=== PATIENT | female | born 1980 | race Caucasian/White ===

== ENCOUNTER 2016-07-29 22:11 | Emergency (ER) | payer OTHER ==
--- NOTE | 2016-07-29 22:33 | ED ---
General Adult HPI - General Chief complaint: Extremity Problem,Nontraumatic Stated complaint: Leg throbbing/with bruise Source: patient, RN notes reviewed Mode of arrival: ambulatory Limitations: no limitations - History of Present Illness Initial comments: If complaint and history of present illness a 35-year-old female with a complaint of initially itchy now painful localized swelling is ecchymotic to the posterior right calf area. Patient cannot remember being bitten by an insect or injuring this area. - Related Data Allergies Allergy/AdvReac Type Severity Reaction Status Date / Time No Known Allergies Allergy Verified 07/29/16 22:19 Review of Systems ROS Statement: Those systems with pertinent positive or pertinent negative responses have been documented in the HPI. Review of systems no other complaints this time no headache chest pain shows breath GI/ problems. All systems were normal. Past medical problems significant for previous septic emboli. Surgeries implanted hormone. Family history mother had breast cancer. Patient denies ALLERGIES nonsmoker nondrinker. ROS Other: All systems not noted in ROS Statement are negative. Past Medical History Past Medical History: No Reported History History of Any Multi-Drug Resistant Organisms: None Reported Past Surgical History: No Surgical Hx Reported Past Psychological History: No Psychological Hx Reported Smoking Status: Never smoker Past Alcohol Use History: None Reported Past Drug Use History: None Reported General Exam - General Exam Comments Initial Comments: General: The patient is awake and alert, had an itchy area behind her right calf noticed a bruise and tender area. Can't remember being bitten or injured in that area. Wants to get checked out for possible DVT. No other complaints. Temp 99.5 pulse 74 respiratory rate 16 pulse ox 90% room air blood pressure 124/66 E Cardiovascular: No complaint of palpitations or chest pain Respiratory: Denies shortness of breath respiratory rate 16 pulse ox 90% room air G Musculoskeletal: Patient does have varicosities of her there is one larger very tender area of ecchymosis that she said initially felt it she is a she was bitten by something palpation of the area causes discomfort. Posterior right side of the calf Neurological: No complaint of any numbness or tingling. Limitations: no limitations Course Vital Signs 07/29/16 07/29/16 22:15 22:55 Temperature 99.5 F Pulse Rate 74 Respiratory 16 18 Rate Blood Pressure 124/66 O2 Sat by Pulse 98 Oximetry Medical Decision Making - Medical Decision Making ultrasound of the right leg was done and reviewed by radiologist his final impression is a normal right lower extremity duplex venous ultrasound,no thrombus in the visualized greater saphenous vein. As read by Dr. Damien Patel advised to continue playing ice pack. Advised to use ibuprofen for discomfort. Follow-up. Her family physician as needed. Disposition Clinical Impression: Traumatic ecchymosis of right lower leg Disposition: HOME SELF-CARE Condition: Fair Instructions: Ecchymosis (ED), Superficial Thrombophlebitis (ED) Additional Instructions: Ice on again off again tonight. Ibuprofen for discomfort. Follow-up with family physician. Referrals: None,Stated [Primary Care Provider] - 1-2 days Time of Disposition: 00:22
--- NOTE | 2016-07-30 00:05 | US ---
EXAM: US Duplex Right Lower Extremity Veins CLINICAL HISTORY: Reason: Painful swelling posterior right leg TECHNIQUE: Real-time ultrasound scan of the veins of the right lower extremity with color Doppler flow, spectral waveform analysis and compression. COMPARISON: No relevant prior studies available. FINDINGS: Deep veins: Unremarkable. No DVT in the common femoral, femoral, proximal deep femoral or popliteal veins. The veins are compressible with normal color flow and augmentation. Superficial veins: Unremarkable. No thrombus in the visualized greater saphenous vein. Soft tissues: No acute findings. No popliteal cyst. IMPRESSION: Normal right lower extremity duplex venous ultrasound.
[2016-07-30 00:34] VITALS: BP 132/87; PULSE 78; RESP 17; TEMP 98.7
== END 2016-07-30 00:33 | disposition home or self-care (01) ==
LOC: EC 22:11
DX: S80.11XA Contusion of right lower leg, initial encounter (principal); X58.XXXA Exposure to other specified factors, initial encounter
CPT/HCPCS: 99283

== ENCOUNTER 2020-03-06 19:50 | Emergency (ER) | payer OTHER ==
[2020-03-06] MEDS ORDERED: SODIUM CHLORIDE 0.9% 1,000 ML IV STA ×2 (20:23→21:08)
--- NOTE | 2020-03-06 20:26 | ED ---
General Adult HPI - General Chief complaint: Recheck/Abnormal Lab/Rx Stated complaint: Abn Lab Time Seen by Provider: 03/06/20 20:00 Source: patient Mode of arrival: ambulatory Limitations: no limitations - History of Present Illness Initial comments: Patient is a 39-year-old female presenting to the emergency room for a chief complaining of bilateral flank pain. Patient states she has had low back pain for the past 5 days. She noted she had frequent urination associated with this as well. Now her pain is in her flank. She has also had nausea associated with this as well. Patient went to urgent care and had a urine test performed which showed moderate to large bilirubin in the urine. She was then sent to the emergency room for this. Patient denies any significant abdominal pain. This is some minimal left upper quadrant abdominal pain. Denies any right upper quadrant or epigastric abdominal pain. Patient does not have a history of c holecystectomy. No fevers.Patient has no other complaints at this time including shortness of breath, chest pain, abdominal pain, nausea or vomiting, headache, or visual changes. - Related Data Previous Rx's Medication Instructions Recorded Cephalexin [Keflex] 500 mg PO Q6HR 14 Days #56 cap 03/06/20 Ondansetron [Zofran ODT] 4 mg PO Q8HR PRN #15 tab 03/06/20 Allergies Allergy/AdvReac Type Severity Reaction Status Date / Time No Known Allergies Allergy Verified 03/06/20 21:12 Review of Systems ROS Statement: Those systems with pertinent positive or pertinent negative responses have been documented in the HPI. ROS Other: All systems not noted in ROS Statement are negative. Past Medical History Past Medical History: No Reported History History of Any Multi-Drug Resistant Organisms: None Reported Past Surgical History: Tubal Ligation Past Psychological History: No Psychological Hx Reported Smoking Status: Never smoker Past Alcohol Use History: None Reported Past Drug Use History: None Reported General Exam Limitations: no limitations General appearance: alert, in no apparent distress, other (no jaundice) Head exam: Present: atraumatic Eye exam: Present: normal appearance, PERRL, EOMI. Absent: scleral icterus ENT exam: Present: normal exam, mucous membranes moist Neck exam: Present: normal inspection, full ROM. Absent: tenderness Respiratory exam: Present: normal lung sounds bilaterally. Absent: respiratory distress Cardiovascular Exam: Present: regular rate, normal rhythm, normal heart sounds GI/Abdominal exam: Present: soft, tenderness (Minimal left upper quadrant tenderness. No right upper quadrant or right lower quadrant tenderness. no left lower quadrant abdominal tenderness). Absent: distended Back exam: Present: CVA tenderness (R), CVA tenderness (L) Neurological exam: Present: alert Skin exam: Present: warm, dry, intact, normal color. Absent: rash Course Vital Signs 03/06/20 03/06/20 19:52 21:00 Temperature 98.6 F Pulse Rate 92 88 Respiratory 20 18 Rate Blood Pressure 115/73 128/78 O2 Sat by Pulse 99 97 Oximetry Medical Decision Making - Medical Decision Making Vitals are stable. HPI physical exam is documented. CBC unremarkable. CMP shows minimal hypokalemia, replaced orally. There is some increase in creatinine of 1.39. Patient states she has not been drinking as much water as normal. This is likely related. Liver enzymes slightly elevated however no baseline to compare to. Bilirubin normal. Urinalysis however did show evidence of infection with large leukocyte esterase, 172 white cells, and bacteria. There is associated red blood cells as well. Patient is not on her period. Discussed case with Dr. martinez. She will be treated for urinary tract infection and possible pyelonephritis. However discussed strict return parameters with patient. Especially if she is getting worse, developing fevers, were not able to tolerate liquids. Otherwise she'll follow-up with her doctor for repeat labs. - Lab Data Result diagrams: 03/06/20 20:38 03/06/20 20:38 Lab Results 03/06/20 03/06/20 03/06/20 Range/Units 20:38 20:38 20:38 WBC 13.1 H (3.8-10.6) k/uL RBC 4.43 (3.80-5.40) m/uL Hgb 13.4 (11.4-16.0) gm/dL Hct 38.1 (34.0-46.0) % MCV 85.9 (80.0-100.0) fL MCH 30.2 (25.0-35.0) pg MCHC 35.1 (31.0-37.0) g/dL RDW 12.9 (11.5-15.5) % Plt Count 265 (150-450) k/uL MPV 9.1 Neutrophils % 81 % Lymphocytes % 7 % Monocytes % 6 % Eosinophils % 2 % Basophils % 1 % Neutrophils # 10.5 H (1.3-7.7) k/uL Lymphocytes # 0.9 L (1.0-4.8) k/uL Monocytes # 0.8 (0-1.0) k/uL Eosinophils # 0.3 (0-0.7) k/uL Basophils # 0.2 (0-0.2) k/uL Sodium (137-145) mmol/L Potassium (3.5-5.1) mmol/L Chloride (98-107) mmol/L Carbon Dioxide (22-30) mmol/L Anion Gap mmol/L BUN (7-17) mg/dL Creatinine (0.52-1.04) mg/dL Est GFR (CKD-EPI)AfAm (>60 ml/min/1.73 sqM) Est GFR (CKD-EPI)NonAf (>60 ml/min/1.73 sqM) Glucose (74-99) mg/dL Calcium (8.4-10.2) mg/dL Magnesium (1.6-2.3) mg/dL Total Bilirubin (0.2-1.3) mg/dL AST (14-36) U/L ALT (4-34) U/L Alkaline Phosphatase (38-126) U/L Total Protein (6.3-8.2) g/dL Albumin (3.5-5.0) g/dL Amylase (30-110) U/L Lipase (23-300) U/L Urine Color Dark Brown Urine Appearance Cloudy H (Clear) Urine pH 6.0 (5.0-8.0) Ur Specific Yoder 1.030 (1.001-1.035) Urine Protein 2+ H (Negative) Urine Glucose (UA) Negative (Negative) Urine Ketones Trace H (Negative) Urine Blood Large H (Negative) Urine Nitrite Negative (Negative) Urine Bilirubin 1+ H (Negative) Urine Urobilinogen >12.0 (<2.0) mg/dL Ur Leukocyte Esterase Large H (Negative) Urine RBC >182 H (0-5) /hpf Urine WBC 172 H (0-5) /hpf Urine WBC Clumps Occasional H (None) /hpf Ur Squamous Epith Cells 11 H (0-4) /hpf Urine Bacteria Rare H (None) /hpf Urine Mucus Few H (None) /hpf Urine HCG, Qual Not Detected (Not Detectd) 03/06/20 03/06/20 Range/Units 20:38 20:38 WBC (3.8-10.6) k/uL RBC (3.80-5.40) m/uL Hgb (11.4-16.0) gm/dL Hct (34.0-46.0) % MCV (80.0-100.0) fL MCH (25.0-35.0) pg MCHC (31.0-37.0) g/dL RDW (11.5-15.5) % Plt Count (150-450) k/uL MPV Neutrophils % % Lymphocytes % % Monocytes % % Eosinophils % % Basophils % % Neutrophils # (1.3-7.7) k/uL Lymphocytes # (1.0-4.8) k/uL Monocytes # (0-1.0) k/uL Eosinophils # (0-0.7) k/uL Basophils # (0-0.2) k/uL Sodium 137 (137-145) mmol/L Potassium 3.1 L (3.5-5.1) mmol/L Chloride 101 (98-107) mmol/L Carbon Dioxide 25 (22-30) mmol/L Anion Gap 11 mmol/L BUN 18 H (7-17) mg/dL Creatinine 1.39 H (0.52-1.04) mg/dL Est GFR (CKD-EPI)AfAm 56 (>60 ml/min/1.73 sqM) Est GFR (CKD-EPI)NonAf 48 (>60 ml/min/1.73 sqM) Glucose 104 H (74-99) mg/dL Calcium 8.8 (8.4-10.2) mg/dL Magnesium 2.2 (1.6-2.3) mg/dL Total Bilirubin 1.2 (0.2-1.3) mg/dL AST 68 H (14-36) U/L ALT 131 H (4-34) U/L Alkaline Phosphatase 164 H (38-126) U/L Total Protein 7.1 (6.3-8.2) g/dL Albumin 3.7 (3.5-5.0) g/dL Amylase 54 (30-110) U/L Lipase 66 (23-300) U/L Urine Color Urine Appearance (Clear) Urine pH (5.0-8.0) Ur Specific Yoder (1.001-1.035) Urine Protein (Negative) Urine Glucose (UA) (Negative) Urine Ketones (Negative) Urine Blood (Negative) Urine Nitrite (Negative) Urine Bilirubin (Negative) Urine Urobilinogen (<2.0) mg/dL Ur Leukocyte Esterase (Negative) Urine RBC (0-5) /hpf Urine WBC (0-5) /hpf Urine WBC Clumps (None) /hpf Ur Squamous Epith Cells (0-4) /hpf Urine Bacteria (None) /hpf Urine Mucus (None) /hpf Urine HCG, Qual (Not Detectd) Disposition Clinical Impression: UTI (urinary tract infection), Elevated liver enzymes Disposition: HOME SELF-CARE Condition: Good Instructions (If sedation given, give patient instructions): Kidney Infection (ED) Additional Instructions: Please take antibiotic as directed every 6 hours. Take Zofran as needed for nausea up to every 8 hours. Follow up with primary care to repeat labs. If you have any worsening symptoms such as fever, worsening pain, or unable to keep down fluids, right upper quadrant pain, or any other concerns return to the emergency room. Prescriptions: Cephalexin [Keflex] 500 mg PO Q6HR 14 Days #56 cap Ondansetron [Zofran ODT] 4 mg PO Q8HR PRN #15 tab PRN Reason: Nausea Is patient prescribed a controlled substance at d/c from ED?: No Referrals: Julio Zaragoza MD [STAFF PHYSICIAN] - 1-2 days Moy Richardson DO [STAFF PHYSICIAN] - 1-2 days Time of Disposition: 22:32
[2020-03-06 20:46] LABS: Basophils # (A) 0.2 k/uL (0-0.2); Basophils % (A) 1 %; Eosinophils # (A) 0.3 k/uL (0-0.7); Eosinophils % (A) 2 %; HCT 38.1 % (34.0-46.0); HGB 13.4 gm/dL (11.4-16.0); Lymphocytes # (A) 0.9 k/uL (1.0-4.8); Lymphocytes % (A) 7 %; MCH 30.2 pg (25.0-35.0); MCHC 35.1 g/dL (31.0-37.0); MCV 85.9 fL (80.0-100.0); Mean Platelet Volume 9.1; Monocytes # (A) 0.8 k/uL (0-1.0); Monocytes % (A) 6 %; Neutrophils # (A) 10.5 k/uL (1.3-7.7); Neutrophils % (A) 81 %; Platelet Count 265 k/uL (150-450); RBC 4.43 m/uL (3.80-5.40); RDW 12.9 % (11.5-15.5); WBC 13.1 k/uL (3.8-10.6)
[2020-03-06 20:49] LABS: Appearance,Urine Cloudy (Clear); Bacteria,Urine Rare /hpf; Bilirubin,Urine 1+ (Negative); Blood,Urine Large (Negative); Color,Urine Dark Brown; Glucose,Urine (UA) Negative (Negative); Ketones,Urine Trace (Negative); Leukocyte Esterase,Urine Large (Negative); Mucus,Urine Few /hpf; Nitrite,Urine Negative (Negative); Protein,Urine 2+ (Negative); RBC,Urine >182 /hpf (0-5); Squamous Epithelial Cell,Urine 11 /hpf (0-4); Urobilinogen,Urine >12.0 mg/dL (<2.0); WBC,Urine 172 /hpf (0-5)
[2020-03-06 20:58] LABS: Albumin 3.7 g/dL (3.5-5.0); Calcium 8.8 mg/dL (8.4-10.2); Potassium 3.1 mmol/L (3.5-5.1); Total Bilirubin 1.2 mg/dL (0.2-1.3); Total Protein 7.1 g/dL (6.3-8.2)
[2020-03-06] MEDS ORDERED: POTASSIUM CHLORIDE ER 20 MEQ TAB.ER PO STA (21:07)
[2020-03-06 21:32] VITALS: RESP 18
--- NOTE | 2020-03-06 21:55 | CT ---
EXAMINATION TYPE: CT abdomen pelvis wo con DATE OF EXAM: 03/06/2020 COMPARISON: None available. HISTORY: left flank pain CT DLP: 652.7 mGycm Automated exposure control for dose reduction was used. TECHNIQUE: Helical acquisition of images was performed from the lung bases through the pelvis. FINDINGS: LUNG BASES: No acute abnormality is appreciated. Nonspecific 3 mm right middle lobe nodule. LIVER/GB: No significant abnormality is appreciated. PANCREAS: No significant abnormality is seen. SPLEEN: No significant abnormality is seen. ADRENALS: No significant abnormality is seen. KIDNEYS: Few 2-4 nonobstructing left renal calculi with the largest measuring 6 mm. No significant bi lateral hydronephrosis or nephrolithiasis. FREE AIR: No free air is visualized RETROPERITONEAL ADENOPATHY: None visualized REPRODUCTIVE ORGANS: No significant abnormality is seen URINARY BLADDER: No significant abnormality is seen. PELVIC ADENOPATHY: None visualized. OSSEOUS STRUCTURES: No significant abnormality is seen. BOWEL: No significant abnormality is seen. Small right inguinal hernia. Normal appendix. OTHER: Bilateral tubal ligation noted. Incidental 4 cm simple appearing right adnexal cyst. IMPRESSION: NO DEFINITE ACUTE ABNORMALITY. NONOBSTRUCTING LEFT RENAL CALCULI, MEASURING UP TO 6 MM. Incidental findings as above to include 4 cm right adnexal cyst.
[2020-03-06] MEDS ORDERED: cefTRIAXone IN SWFI 1,000 MG/10 ML SYRINGE IVP STA ×2 (22:30→22:31)
[2020-03-06] MEDS ORDERED: CEPHALEXIN 500MG STARTER PACK 4 CAP BTL PO STA (22:33)
[2020-03-06] MEDS ORDERED: ONDANSETRON 4 MG ODT STARTER PACK 2 TAB BTL PO STA (22:33)
[2020-03-06 22:54] VITALS: BP 116/73; PULSE 74; TEMP 98.3
== END 2020-03-06 22:54 | disposition home or self-care (01) ==
LOC: EC 19:50
DX: N39.0 Urinary tract infection, site not specified (principal); R94.5 Abnormal results of liver function studies; E87.6 Hypokalemia; Z98.51 Tubal ligation status
CPT/HCPCS: 36415; 80053; 82150; 83690; 83735; 85025; 81001; 81025; 87086; 74176; 99284; 96374; 96361 ×2; J0696; S0119

== ENCOUNTER → 2020-06-02 | Outpatient (CLI) | payer OTHER ==
[2020-06-03 03:07] LABS: Folate, Serum 3.3 ng/mL
--- NOTE | 2020-06-03 12:05 | US ---
EXAMINATION TYPE: US pelvic complete DATE OF EXAM: 06/02/2020 COMPARISON: NONE CLINICAL HISTORY: 39-year-old female M79.89,Z86.718,Z01.419 SWELLING, BLOOD CLOTS. Patient has MTHFR mutation and has blood clots with every cycle, , Essure tubal ligation TECHNIQUE: TA. Transabdominal sonographic images of the pelvis were acquired. Date of LMP: 05/12/2020 FINDINGS: EXAM MEASUREMENTS: Uterus: 11.0 x 7.6 x 5.5 cm Endometrial Stripe: 1.6 cm Right Ovary: 3.5 x 2.9 x 3.2 cm Left Ovary: 3.3 x 2.7 x 1.9 cm 1. Uterus: Anteverted and otherwise wnl 2. Endometrium: 1.6cm thickened to the upper limits of normal. 3. Right Ovary: wnl 4. Left Ovary: wnl 5. Bilateral Adnexa: wnl 6. Posterior cul-de-sac: wnl Bilateral Essures are seen at the uterine cornua. There is fundal indentation onto the endometrium, s uspected arcuate configuration to the uterus. IMPRESSION: 1. Bilateral Essures are seen at the uterine cornua. 2. Incidental fundal indentation onto the endometrium, suspected arcuate configuration to the uterus. 3. Endometrial stripe thickened to the upper limits of normal at 1.6 cm should correspond to the late secretory phase of the menstrual cycle.
== END | disposition home or self-care (01) ==
LOC: RADUSWWP 15:38
PROVIDERS: ATTEND Family Medicine
DX: R93.89 Abnormal findings on diagnostic imaging of other specified body structures (principal)
CPT/HCPCS: 36415; 76856; 81291; 82306; 82607; 82746; 83090

== ENCOUNTER → 2020-07-05 | Outpatient (CLI) | payer OTHER ==
--- NOTE | 2020-07-06 10:12 | MM ---
Reason for exam: screening (asymptomatic). Baseline mammogram. History: Family history of breast cancer in mother at age 50. Took hormonal contraceptives for 2 years beginning at age 15. Physical Findings: Nurse did not find any significant physical abnormalities on exam. MG Screening Mammo w CAD Bilateral CC and MLO view(s) were taken. The breast tissue is heterogeneously dense. This may lower the sensitivity of mammography. Right nodule retroareolar. These results were verbally communicated with the patient and result sheet given to the patient on 07/05/20. ASSESSMENT: Incomplete: need additional imaging evaluation, BI-RAD 0 RECOMMENDATION: Special view mammogram of the right breast.
--- NOTE | 2020-07-06 10:14 | MM ---
Reason for exam: additional evaluation requested from abnormal screening. History: Family history of breast cancer in mother at age 50. Took hormonal contraceptives for 2 years beginning at age 15. Physical Findings: Breast exam preformed at baseline screening. MG Work Up Mamm w CAD BILAT Bilateral spot compression MLO and LM view(s) were taken. Spot compression CC view(s) were taken of the right breast. The breast tissue is heterogeneously dense. This may lower the sensitivity of mammography. 5mm nodule right upper outer quadrant retroareolar 10 o'clock. These results were verbally communicated with the patient and result sheet given to the patient on 07/05/20. ASSESSMENT: Incomplete: need additional imaging evaluation, BI-RAD 0 RECOMMENDATION: Ultrasound of the right breast.
--- NOTE | 2020-07-06 10:16 | USB ---
Reason for exam: additional evaluation requested from abnormal screening. History: Family history of breast cancer in mother at age 50. Took hormonal contraceptives for 2 years beginning at age 15. US Breast Workup Limited RT Technologist: Torie Shen Right limited breast ultrasound including focal area of concern, retroareolar and axilla demonstrates no sonographic correlate for 5mm nodule on right breast mammogram. Dense breast tissue/fibrocystic area at 10 o'clock approximately 6cm from nipple. These results were verbally communicated with the patient and result sheet given to the patient on 07/05/20. ASSESSMENT: Probably benign, BI-RAD 3 RECOMMENDATION: Follow-up diagnostic mammogram of the right breast in 6 months.
== END | disposition home or self-care (01) ==
LOC: RADMAMWWP 13:42
PROVIDERS: ATTEND Family Medicine
DX: Z12.31 Encounter for screening mammogram for malignant neoplasm of breast (principal); R92.2 Inconclusive mammogram; N63.11 Unspecified lump in the right breast, upper outer quadrant; Z80.3 Family history of malignant neoplasm of breast
CPT/HCPCS: 77066; 77067

== ENCOUNTER → 2021-03-29 | Outpatient (CLI) | payer OTHER ==
--- NOTE | 2021-03-29 13:45 | MM ---
Reason for exam: follow-up at short interval from prior study. Last mammogram was performed 9 months ago. History: Family history of breast cancer in mother at age 50. Took hormonal contraceptives for 2 years beginning at age 15. Physical Findings: Nurse did not find any significant physical abnormalities on exam. MG 3D Diag Mammo W/Cad RT CC, MLO, and LM view(s) were taken of the right breast. Prior study comparison: July 05, 2020, bilateral MG work up mamm w CAD BILAT. July 05, 2020, bilateral MG screening mammo w CAD. The breast tissue is heterogeneously dense. This may lower the sensitivity of mammography. There is no discrete abnormality including area of concern. These results were verbally communicated with the patient and result sheet given to the patient on 03/29/21. ASSESSMENT: Negative, BI-RAD 1 RECOMMENDATION: Return to routine screening mammogram schedule for both breasts. Back on schedule.
== END | disposition home or self-care (01) ==
LOC: RADMAMWWP 12:53
PROVIDERS: ATTEND Family Medicine
DX: N63.11 Unspecified lump in the right breast, upper outer quadrant (principal); N63.41 Unspecified lump in right breast, subareolar
CPT/HCPCS: 77065; G0279; 77061

== ENCOUNTER → 2022-08-10 | Day surgery (SDC) | payer MEDICAID, OTHER ==
[2022-08-07 15:53] VITALS: BMI 30.2
[~2022-08-10] MED LIST: LACTATED RINGERS 1,000 ML IV SCH; PROPOFOL 10 MG/ML 20 ML VIAL IV ONE
[2022-08-10 06:53] VITALS: TEMP 97.7
--- NOTE | 2022-08-10 08:32 | P.PCN ---
Date of Procedure: 08/10/22 Procedure(s) Performed: Brief history: Patient is a pleasant 2-year-old white female scheduled for an elective upper endoscopy as well as colonoscopy as a part of evaluation of GERD, chronic diarrhea and positive serology for celiac disease Procedure performed: Esophagogastroduodenoscopy with biopsy Colonoscopy with biopsy Preoperative diagnosis: GERD Positive serology for celiac disease Chronic diarrhea Anesthesia: [facility] Procedure: After informed consent was obtained from the patient was brought into the endoscopy unit and IV sedation was administered by anesthesia under continuous monitoring. Initially upper endoscopy was done. The Olympus GF 160 video endoscope was inserted inserted into the mouth and esophagus intubated without any difficulty and was gradually advanced into the stomach and duodenum and carefully examined. The bulb and second part of the duodenum appeared normal. Multiple biopsies were done from the duodenum to rule out celiac disease. The scope was then withdrawn into the stomach adequately insufflated with air and upon careful examination the antrum had mild gastritis and biopsies were done from this area. Mucosa of the body, cardia and fundus appeared normal. The scope was then withdrawn into the esophagus. The GE junction was located at 40 cm to the incisors. It appeared regular with no erythema erosions or ulcerations. Rest of the esophagus appeared normal. Patient tolerated the procedure well. At this time the patient continued to remain sedation. Initial digital rectal examination was normal. Olympus CF 160 video colonoscope was then inserted into the rectum and gradually advanced to the cecum without any difficulty. Careful examination was performed as the scope was gradually being withdrawn. The prep was excellent. Terminal ileum was intubated and 20 cm visualized and appeared normal. The cecum, ascending colon, transverse colon, descending colon, sigmoid colon and rectum appeared normal. Random biopsies were done from ascending and descending colon to rule out metastatic/collagenous colitis Retroflexion was performed in the rectum and no lesions were noted. Patient tolerated the procedure well. Impression: 1. Upper endoscopy revealed mild antral gastritis and normal-appearing duodenum status post multiple biopsies to rule out 2. Anoscopy was within normal limits with no evidence of colitis or colorectal neoplasia Recommendations: Findings of this examination were discussed with the patient as well as her family. She was advised to follow with the biopsy result. She'll be seen in office in 2 weeks.
[2022-08-10 09:26] VITALS: BP 110/70; PULSE 81; RESP 16
== END ==
LOC: ORWHC2ENDO 06:14
PROVIDERS: ATTEND Internal Medicine Gastroenterology
DX: K29.50 Unspecified chronic gastritis without bleeding (principal); K52.9 Noninfective gastroenteritis and colitis, unspecified; D72.820 Lymphocytosis (symptomatic); K21.9 Gastro-esophageal reflux disease without esophagitis; K90.0 Celiac disease; Z79.899 Other long term (current) drug therapy
CPT/HCPCS: 81025; 88305; 45380; 43239; J2704

== ENCOUNTER → 2023-05-22 | Outpatient (CLI) | payer MEDICAID, OTHER ==
--- NOTE | 2023-05-22 17:50 | US ---
EXAMINATION TYPE: US venous doppler duplex LE RT DATE OF EXAM: 05/22/2023 2:53 PM COMPARISON: 07/29/2016 CLINICAL INDICATION: Female, 42 years old with history of Z86.718 HX BLOOD CLOTS M79.651 THIGH PAIN L 53.9 LEG ERYTHEMA; Right leg pain and bruising since saturday. Patient states she has had this ultrasou nd done before but that she has never had a blood clot. . SIDE PERFORMED: Right TECHNIQUE: The lower extremity deep venous system is examined utilizing real time linear array sonog aniyah with graded compression, doppler sonography and color-flow sonography. VESSELS IMAGED: Common Femoral Vein Deep Femoral Vein Greater Saphenous Vein * Femoral Vein Popliteal Vein Small Saphenous Vein * Proximal Calf Veins (* superficial vessels) Right Leg: Negative for DVT results left with La at office IMPRESSION: 1. Right lower extremity ultrasound negative for deep venous thrombosis.
== END | disposition home or self-care (01) ==
LOC: RADUSWWP 14:28
PROVIDERS: ATTEND Family Medicine
DX: M79.651 Pain in right thigh (principal); L53.9 Erythematous condition, unspecified; Z15.89 Genetic susceptibility to other disease; Z86.718 Personal history of other venous thrombosis and embolism

== ENCOUNTER → 2023-10-31 | Outpatient (CLI) | payer MEDICAID, OTHER ==
--- NOTE | 2023-11-03 16:58 | MM ---
Reason for Exam: Screening (asymptomatic). Last mammogram was performed 3 year(s) and 4 month(s) ago. Patient History: Menarche at age 12. First Full-Term at age 25. Hormonal Contraceptives for 2 years from age 15 until age 17. Mother had breast cancer, age 50. Last menstrual period: 10/11/2023 Risk Values: Lety 5 year model risk: 1.4%. NCI Lifetime model risk: 19.6%. Prior Study Comparison: 07/05/2020 Bilateral Screening Mammogram, [facility]. 07/05/2020 Bilateral Diagnostic Mammogram, [facility]. 03/29/2021 Right Diagnostic Mammogram, [facility]. Tissue Density: The breasts are heterogeneously dense, which may obscure small masses. Findings: Analyzed By CAD. Focal asymmetry 12:00 right breast middle to posterior depth appears more pronounced and incompletely disperses on 3-D images. Further evaluation recommended. On the left, there is nodularity approximately 3 to 4:00 position at a middle depth for which further evaluation is recommended. Overall Assessment: Incomplete: need additional imaging evaluation, BI-RAD 0 Management: Special View Mammogram of both breasts. Diagnostic Breast Ultrasound of both breasts. [facility] will attempt to contact patient to return for supplemental views and ultrasound if indicated. [facility], , 11/03/2023 4:55 PM. Electronically signed and approved by: Donnie Rome M.D. Radiologist
== END | disposition home or self-care (01) ==
LOC: RADMAMWWP 09:35
PROVIDERS: ATTEND Obstetrics & Gynecology
DX: Z12.31 Encounter for screening mammogram for malignant neoplasm of breast
CPT/HCPCS: 77063; 77067

== ENCOUNTER → 2023-11-08 | Outpatient (CLI) | payer MEDICAID, OTHER ==
--- NOTE | 2023-11-08 14:21 | MM ---
Reason for Exam: Additional evaluation requested from abnormal screening. Last screening mammogram was performed less than 1 month ago. Patient History: Menarche at age 12. First Full-Term at age 25. Hormonal Contraceptives for 2 years from age 15 until age 17. Mother had breast cancer, age 50. Last menstrual period: 11/08/2023 Risk Values: Lety 5 year model risk: 1.4%. NCI Lifetime model risk: 19.6%. Prior Study Comparison: 03/29/2021 Right Diagnostic Mammogram, [facility]. 10/31/2023 Bilateral MG 3D screening mammo w/cad, [facility]. Tissue Density: The breasts are heterogeneously dense, which may obscure small masses. Findings: Analyzed By CAD. The pattern is symmetrical. Under compression on the right breast density appears to largely disperse. There is some mild residual on the mediolateral oblique view. Ultrasound with attention to the right 12:00 position is recommended. Impression small 0.4 cm lower outer quadrant breast nodule remains present on the mediolateral oblique compression view. This is 7 cm from the nipple. Follow-up ultrasound is recommended. Overall Assessment: Incomplete: need additional imaging evaluation, BI-RAD 0 Management: Diagnostic Breast Ultrasound of both breasts. A negative mammogram report should not preclude additional follow up of suspicious palpable abnormalities. Patient should continue monthly self breast exam. A clinical breast exam by your physician is recommended on an annual basis and results should be correlated with mammographic findings. Note on Lety scores and lifetime risk: 1. A Lety score greater than 3% is considered moderate risk. If this is the case, consider specialist referral to assess eligibility for a risk reducing agent. 2. If overall lifetime risk for the development of breast cancer is 20% or higher, the patient may qualify for future screening with alternating mammogram and breast MRI. [facility], , 11/08/2023 2:18 PM. Electronically signed and approved by: Raheem Gastelum D.O. Radiologis
--- NOTE | 2023-11-08 14:57 | USB ---
Reason for Exam: Additional evaluation requested from abnormal screening. Patient History: Menarche at age 12. First Full-Term at age 25. Hormonal Contraceptives for 2 years from age 15 until age 17. Mother had breast cancer, age 50. Risk Values: Lety 5 year model risk: 1.4%. NCI Lifetime model risk: 19.6%. Technique: Method: Targeted. Prior Study Comparison: 07/05/2020 Bilateral Diagnostic Mammogram, [facility]. 03/29/2021 Right Diagnostic Mammogram, [facility]. 10/31/2023 Bilateral MG 3D screening mammo w/cad, [facility]. Findings: The upper section of the breast of the right breast, the lower outer quadrant of the left breast, the axilla of both breasts and the retroareolar of both breasts were scanned. 12:00 position right breast there is a very small 0 point for a 0.4 x 0.3 cm cyst with good through transmission and posterior wall enhancement. No suspicious spiculated or lobular masses within the right breast. In the 3:00 position 7 cm from the nipple there is a 0.3 x 0.4 x 0.4 cm hypoechoic area with good through transmission. Cyst too small to classify may be present. Follow-up in 6 months is recommended. Subareolar left breast has a 0.5 x 0.3. This May be a cyst. Follow-up exam in 6 months is recommended. Management: Diagnostic Breast Ultrasound of both breasts in 6 months. A clinical breast exam by your physician is recommended on an annual basis and results should be correlated with mammographic findings. This exam should not preclude additional follow-up of suspicious palpable abnormalities. Results were given to the patient verbally at the time of exam. [facility], , 11/08/2023 2:43 PM. Electronically signed and approved by: Raheem Gastelum D.O. Radiologis
== END | disposition home or self-care (01) ==
LOC: RADMAMWWP 13:32
PROVIDERS: ATTEND Obstetrics & Gynecology
CPT/HCPCS: 77062; 77066

== ENCOUNTER 2024-05-28 00:12 | Emergency (ER) | payer MEDICAID, OTHER ==
[2024-05-28 01:32] LABS: Appearance,Urine Turbid (Clear); Bacteria,Urine Rare /hpf; Bilirubin,Urine Negative (Negative); Blood,Urine Large (Negative); Calcium Oxalate Crystals,Urine Many /hpf; Color,Urine Light Red; Glucose,Urine (UA) Negative (Negative); Ketones,Urine Negative (Negative); Leukocyte Esterase,Urine Small (Negative); Mucus,Urine Moderate /hpf; Nitrite,Urine Negative (Negative); PH, Urine 5.5 (5.0-8.0); Protein,Urine 1+ (Negative); RBC,Urine >182 /hpf (0-5); Specific Gravity,Urine 1.026 (1.001-1.035); Squamous Epithelial Cell,Urine 3 /hpf (0-4); Urobilinogen,Urine <2.0 mg/dL (<2.0); WBC,Urine 8 /hpf (0-5)
[2024-05-28] MEDS: SODIUM CHLORIDE 0.9% 1,000 ML IV ONE (01:54)
--- NOTE | 2024-05-28 02:17 | ED ---
General Adult HPI - General Chief complaint: Abdominal Pain Stated complaint: lower back pain & abd pain Time Seen by Provider: 05/28/24 00:45 Source: patient, RN notes reviewed Mode of arrival: ambulatory - History of Present Illness Initial comments: 43-year-old female presents to the emergency department for evaluation of left- sided abdominal pain and left-sided flank pain. Patient states that this started around 10:30 AM today. She noted that the pain came on suddenly. Reports that as sharp pain. Denies any known dysuria, hematuria. Denies any fever, chills. Denies any nausea. - Related Data Home Medications Medication Instructions Recorded Confirmed Cholecalciferol [Vitamin D3 (25 50 mcg PO DAILY 08/08/22 08/10/22 Mcg = 1000 Iu)] Cyanocobalamin [Vitamin B-12] 500 mcg PO DAILY 08/08/22 08/10/22 Dicyclomine [Bentyl] 20 mg PO DAILY 08/08/22 08/10/22 Folic Acid 0.8 mg PO DAILY 08/08/22 08/10/22 Omeprazole 20 mg PO DAILY 08/08/22 08/10/22 PARoxetine [Paxil] 10 mg PO DAILY 08/08/22 08/10/22 Previous Rx's Medication Instructions Recorded HYDROcodone/APAP 5-325MG [[place] 5] 1 each PO Q6HR PRN #12 tab 05/28/24 Ondansetron Odt [Zofran Odt] 4 mg PO Q8HR PRN #10 tab 05/28/24 Allergies Allergy/AdvReac Type Severity Reaction Status Date / Time gluten Allergy CELIAC Verified 08/10/22 06:54 DISEASE Review of Systems ROS Statement: Those systems with pertinent positive or pertinent negative responses have been documented in the HPI. ROS Other: All systems not noted in ROS Statement are negative. Past Medical History Past Medical History: Blood Disorder, GERD/Reflux Additional Past Medical History / Comment(s): CELIAC, IBS. MTHFR History of Any Multi-Drug Resistant Organisms: None Reported Past Surgical History: Tubal Ligation, Uterine Ablation Additional Past Surgical History / Comment(s): ESSURE IMPLANT Past Anesthesia/Blood Transfusion Reactions: No Reported Reaction Past Psychological History: Anxiety Smoking Status: Never smoker - Past Family History Mother Family Medical History: Cancer General Exam Limitations: no limitations General appearance: alert, in no apparent distress Head exam: Present: atraumatic, normocephalic, normal inspection Eye exam: Present: normal appearance, PERRL, EOMI. Absent: scleral icterus, conjunctival injection, periorbital swelling ENT exam: Present: normal exam, mucous membranes moist Neck exam: Present: normal inspection. Absent: tenderness, meningismus, lymphadenopathy Respiratory exam: Present: normal lung sounds bilaterally. Absent: respiratory distress, wheezes, rales, rhonchi, stridor Cardiovascular Exam: Present: regular rate, normal rhythm, normal heart sounds. Absent: systolic murmur, diastolic murmur, rubs, gallop, clicks GI/Abdominal exam: Present: soft, tenderness, normal bowel sounds. Absent: distended, guarding, rebound, rigid Extremities exam: Present: normal inspection, full ROM, normal capillary refill. Absent: tenderness, pedal edema, joint swelling, calf tenderness Back exam: Present: CVA tenderness (L) Neurological exam: Present: alert, oriented X3 Psychiatric exam: Present: normal affect, normal mood Skin exam: Present: warm, dry, intact, normal color. Absent: rash Course Vital Signs 05/28/24 05/28/24 00:23 02:59 Temperature 97.7 F 97.7 F Pulse Rate 69 62 Respiratory 20 18 Rate Blood Pressure 150/86 142/80 O2 Sat by Pulse 99 99 Oximetry Medical Decision Making - Medical Decision Making Was pt. sent in by a medical professional or institution ([facility], OIL PIT ATTENDANT, urgent care, hospital, or shelter...) When possible be specific @ -[No] Did you speak to anyone other than the patient for history (EMS, parent, family, police, friend...)? What history was obtained from this source @ -[No] Did you review nursing and triage notes (agree or disagree)? Why? @ -[I reviewed and agree with nursing and triage notes] Were old charts reviewed (outside hosp., previous admission, EMS record, old EKG, old radiological studies, urgent care reports/EKG's, shelter records)? Report findings @ -[No old charts were reviewed] Differential Diagnosis (chest pain, altered mental status, abdominal pain women, abdominal pain men, vaginal bleeding, weakness, fever, dyspnea, syncope, headache, dizziness, GI bleed, back pain, seizure, CVA, palpatations, mental health, musculoskeletal)? @ -[Differential Abdominal Pain Women: Appendicitis, Cholecystitis, diverticulosis, ischemic bowel, pancreatitis, hepatitis, UTI, gastroenteritis, AAA, incarcerated hernia, bowel obstruction, constipation, inflammatory bowel, hepatitis, peptic ulcer disease, splenic infarction, perforated viscus, vulvitis, ovarian torsion, PID, kidney stone, placenta abruption, this is not meant to be an all-inclusive list ] EKG interpreted by me (3pts min.). @ -[None] X-rays interpreted by me (1pt min.). @ -[None done] CT interpreted by me (1pt min.). @ -[None done] U/S interpreted by me (1pt. min.). @ -[None done] What testing was considered but not performed or refused? (CT, X-rays, U/S, labs)? Why? @ -[None] What meds were considered but not given or refused? Why? @ -[None] Did you discuss the management of the patient with other professionals (professionals i.e. , PA, OIL PIT ATTENDANT, lab, RT, psych nurse, home health care social worker, equine manager, teacher, mortgage loan officer, caseworker)? Give summary @ -[No] Was smoking cessation discussed for >3mins.? @ -[No] Was critical care preformed (if so, how long)? @ -[No] Were there social determinants of health that impacted care today? How? (Homelessness, low income, unemployed, alcoholism, drug addiction, transportation, low edu. Level, literacy, decrease access to med. care, [facility], rehab)? @ -[No] Was there de-escalation of care discussed even if they declined (Discuss DNR or withdrawal of care, Hospice)? DNR status @ -[No] What co-morbidities impacted this encounter? (DM, HTN, Smoking, COPD, CAD, Cancer, CVA, ARF, Chemo, Hep., AIDS, mental health diagnosis, sleep apnea, morbid obesity)? @ -[None] Was patient admitted / discharged? Hospital course, mention meds given and route, prescriptions, significant lab abnormalities, going to OR and other pertinent info. @ -[hospital course] Undiagnosed new problem with uncertain prognosis? @ -[No] Drug Therapy requiring intensive monitoring for toxicity (Heparin, Nitro, Insulin, Cardizem)? @ -[No] Were any procedures done? @ -[No] Diagnosis/symptom? @ -[default] Acute, or Chronic, or Acute on Chronic? @ -[default] Uncomplicated (without systemic symptoms) or Complicated (systemic symptoms)? @ -[default] Side effects of treatment? @ -[No] Exacerbation, Progression, or Severe Exacerbation? @ -[No] Poses a threat to life or bodily function? How? (Chest pain, [place], [place], pneumonia, PE, COPD, DKA, ARF, appy, cholecystitis, CVA, Diverticulitis, Homicidal, Suicidal, threat to staff... and all critical care pts) @ -[No] - Lab Data Result diagrams: 05/28/24 01:56 05/28/24 01:56 Lab Results 05/28/24 05/28/24 05/28/24 Range/Units 00:53 00:53 01:56 WBC 8.14 (4.50-10.00) 10*3/uL RBC 4.99 (4.10-5.20) 10*6/uL Hgb 15.2 H (12.0-15.0) g/dL Hct 43.1 (37.2-46.3) % MCV 86.4 (80.0-97.0) fL MCH 30.5 (27.0-32.0) pg MCHC 35.3 (32.0-37.0) g/dL Plt Count 346 (140-440) 10*3/uL MPV 11.6 (9.5-12.2) fL Immature Gran % (Auto) 0.4 % Neutrophils % 74.5 % Lymphocytes % 16.7 % Monocytes % 5.9 % Eosinophils % 1.5 % Basophils % 1.0 % Immature Gran # 0.03 (0.00-0.04) 10*3/uL Neutrophils # 6.07 (1.80-7.70) 10*3/uL Lymphocytes # 1.36 (0.90-5.00) 10*3/uL Monocytes # 0.48 (0.20-1.00) 10*3/uL Eosinophils # 0.12 (0.04-0.35) 10*3/uL Basophils # 0.08 (0.00-0.10) 10*3/uL Sodium (137-145) mmol/L Potassium (3.5-5.1) mmol/L Chloride (98-107) mmol/L Carbon Dioxide (22-30) mmol/L Anion Gap mmol/L BUN (7-17) mg/dL Creatinine (0.52-1.04) mg/dL Est GFR (CKD-EPI)AfAm (>60 ml/min/1.73 sqM) Est GFR (CKD-EPI)NonAf (>60 ml/min/1.73 sqM) Glucose (74-99) mg/dL Calcium (8.4-10.2) mg/dL Total Bilirubin (0.2-1.3) mg/dL AST (14-36) U/L ALT (4-34) U/L Alkaline Phosphatase (38-126) U/L Total Protein (6.3-8.2) g/dL Albumin (3.5-5.0) g/dL Urine Color Light Red Urine Appearance Turbid H (Clear) Urine pH 5.5 (5.0-8.0) Ur Specific [place] 1.026 (1.001-1.035) Urine Protein 1+ H (Negative) Urine Glucose (UA) Negative (Negative) Urine Ketones Negative (Negative) Urine Blood Large H (Negative) Urine Nitrite Negative (Negative) Urine Bilirubin Negative (Negative) Urine Urobilinogen <2.0 (<2.0) mg/dL Ur Leukocyte Esterase Small H (Negative) Urine RBC >182 H (0-5) /hpf Urine WBC 8 H (0-5) /hpf Ur Squamous Epith Cells 3 (0-4) /hpf Calcium Oxalate Crystal Many H (None) /hpf Urine Bacteria Rare H (None) /hpf Urine Mucus Moderate H (None) /hpf Urine HCG, Qual Not Detected (Not Detectd) 05/28/24 Range/Units 01:56 WBC (4.50-10.00) 10*3/uL RBC (4.10-5.20) 10*6/uL Hgb (12.0-15.0) g/dL Hct (37.2-46.3) % MCV (80.0-97.0) fL MCH (27.0-32.0) pg MCHC (32.0-37.0) g/dL Plt Count (140-440) 10*3/uL MPV (9.5-12.2) fL Immature Gran % (Auto) % Neutrophils % % Lymphocytes % % Monocytes % % Eosinophils % % Basophils % % Immature Gran # (0.00-0.04) 10*3/uL Neutrophils # (1.80-7.70) 10*3/uL Lymphocytes # (0.90-5.00) 10*3/uL Monocytes # (0.20-1.00) 10*3/uL Eosinophils # (0.04-0.35) 10*3/uL Basophils # (0.00-0.10) 10*3/uL Sodium 139 (137-145) mmol/L Potassium 4.2 (3.5-5.1) mmol/L Chloride 105 (98-107) mmol/L Carbon Dioxide 26 (22-30) mmol/L Anion Gap 8 mmol/L BUN 12 (7-17) mg/dL Creatinine 0.80 (0.52-1.04) mg/dL Est GFR (CKD-EPI)AfAm >90 (>60 ml/min/1.73 sqM) Est GFR (CKD-EPI)NonAf >90 (>60 ml/min/1.73 sqM) Glucose 108 H (74-99) mg/dL Calcium 9.9 (8.4-10.2) mg/dL Total Bilirubin 0.7 (0.2-1.3) mg/dL AST 29 (14-36) U/L ALT 44 H (4-34) U/L Alkaline Phosphatase 96 (38-126) U/L Total Protein 7.4 (6.3-8.2) g/dL Albumin 4.3 (3.5-5.0) g/dL Urine Color Urine Appearance (Clear) Urine pH (5.0-8.0) Ur Specific [place] (1.001-1.035) Urine Protein (Negative) Urine Glucose (UA) (Negative) Urine Ketones (Negative) Urine Blood (Negative) Urine Nitrite (Negative) Urine Bilirubin (Negative) Urine Urobilinogen (<2.0) mg/dL Ur Leukocyte Esterase (Negative) Urine RBC (0-5) /hpf Urine WBC (0-5) /hpf Ur Squamous Epith Cells (0-4) /hpf Calcium Oxalate Crystal (None) /hpf Urine Bacteria (None) /hpf Urine Mucus (None) /hpf Urine HCG, Qual (Not Detectd) Disposition Clinical Impression: Urolithiasis Disposition: HOME SELF-CARE Condition: Stable Instructions (If sedation given, give patient instructions): Kidney Stones (ED) Additional Instructions: Please follow up with urology. Return to the emergency department for new or worsening symptoms. Prescriptions: HYDROcodone/APAP 5-325MG [[place] 5] 1 each PO Q6HR PRN #12 tab PRN Reason: Pain Ondansetron Odt [Zofran Odt] 4 mg PO Q8HR PRN #10 tab PRN Reason: Nausea Is patient prescribed a controlled substance at d/c from ED?: Yes When asked, does pt state using other controlled substances?: No If prescribed controlled substance>3 days was MAPS reviewed?: Prescribed <3 Days Referrals: None,Stated [Primary Care Provider] - 1-2 days Shayne Ocampo MD [STAFF PHYSICIAN] - 1-2 days
[2024-05-28] MEDS: MORPHINE SULFATE 4 MG/ML SYRINGE IVP STA (02:20)
[2024-05-28 02:25] LABS: Basophils # (A) 0.08 10*3/uL (0.00-0.10); Eosinophils # (A) 0.12 10*3/uL (0.04-0.35); Eosinophils % (A) 1.5 %; HCT 43.1 % (37.2-46.3); HGB 15.2 g/dL (12.0-15.0); Lymphocytes # (A) 1.36 10*3/uL (0.90-5.00); Lymphocytes % (A) 16.7 %; MCH 30.5 pg (27.0-32.0); MCHC 35.3 g/dL (32.0-37.0); MCV 86.4 fL (80.0-97.0); Mean Platelet Volume 11.6 fL (9.5-12.2); Monocytes # (A) 0.48 10*3/uL (0.20-1.00); Monocytes % (A) 5.9 %; Neutrophils # (A) 6.07 10*3/uL (1.80-7.70); Neutrophils % (A) 74.5 %; Platelet Count 346 10*3/uL (140-440); RBC 4.99 10*6/uL (4.10-5.20); RDW 13.1 % (11.5-14.5); WBC 8.14 10*3/uL (4.50-10.00)
[2024-05-28 02:43] LABS: ALT 44 U/L (4-34); AST 29 U/L (14-36); African American GFR (CKD) >90 (>60 ml/min/1.73 sqM); Albumin 4.3 g/dL (3.5-5.0); Alkaline Phosphatase 96 U/L (38-126); Anion Gap 8 mmol/L; Blood Urea Nitrogen 12 mg/dL (7-17); Calcium 9.9 mg/dL (8.4-10.2); Carbon Dioxide 26 mmol/L (22-30); Chloride 105 mmol/L (98-107); Glucose 108 mg/dL (74-99); Non-African American GFR(CKD) >90 (>60 ml/min/1.73 sqM); Potassium 4.2 mmol/L (3.5-5.1); Sodium 139 mmol/L (137-145); Total Bilirubin 0.7 mg/dL (0.2-1.3); Total Protein 7.4 g/dL (6.3-8.2)
[2024-05-28 03:10] VITALS: RESP 18
[2024-05-28 03:45] VITALS: BP 121/77; PULSE 87; TEMP 99.4
[2024-05-28] MEDS: HYDROmorphone 0.5 MG/0.5 ML SYRINGE IVP STA (04:10)
--- NOTE | 2024-05-28 04:24 | CT ---
EXAM: CT Abdomen and Pelvis Without Intravenous Contrast CLINICAL HISTORY: ITS.REASON CT Reason: flank pain, hematuria TECHNIQUE: Axial computed tomography images of the abdomen and pelvis without intravenous contrast. CTDI is 9.5 mGy and DLP is 545.7 mGy-cm. This CT exam was performed using one or more of the following dose reduction techniques: automated exposure control, adjustment of the mA and/or kV according to patient size, and/or use of iterative reconstruction technique. COMPARISON: CT dated 03/06/2020. FINDINGS: Lung bases: Unremarkable. No mass. No consolidation. ABDOMEN: Liver: Hepatomegaly and hepatic steatosis. No evidence of hepatic mass. Gallbladder and bile ducts: Unremarkable. No calcified stones. No ductal dilation. Pancreas: Unremarkable. No ductal dilation. Spleen: The spleen is enlarged without evidence of mass. Adrenals: Unremarkable. No mass. Kidneys and ureters: 7.7 mm stone seen within the proximal left ureter with mild left-sided proximal hydroureter and hydronephrosis. Stomach and bowel: Unremarkable. No obstruction. No mucosal thickening. PELVIS: Appendix: Enlargement of the tip of the appendix measuring 9.8 mm with a appendicolith seen at the tip. Bladder: Unremarkable. No stones. Reproductive: Unremarkable as visualized. ABDOMEN and PELVIS: Intraperitoneal space: Fluid is seen within the right inguinal canal measuring 3.0 cm. No free air. Bones/joints: Degenerative changes are seen within the spine and hips. No acute fracture. No dislocation. Soft tissues: Unremarkable. Vasculature: Unremarkable. No abdominal aortic aneurysm. Lymph nodes: Unremarkable. No enlarged lymph nodes. IMPRESSION: 1. Mildly obstructing proximal left ureteral stone. 2. Appendicolith and mild enlargement of the tip the appendix. Underlying mild or early acute appendicitis is not excluded.
== END 2024-05-28 04:09 | disposition home or self-care (01) ==
LOC: EC 00:12
DX: N20.1 Calculus of ureter (principal); Z88.8 Allergy status to other drugs, medicaments and biological substances
CPT/HCPCS: 36415; 80053; 85025; 81001; 81025; 74176; 99284; 96374; 96375; 96361; J2270; J1171

== ENCOUNTER 2024-05-29 12:15 | Day surgery (SDC) | payer MEDICAID, OTHER ==
[2024-05-28 14:51] VITALS: BMI 31.1
--- NOTE | 2024-05-28 15:00 | P.GSHP ---
History of Present Illness H&P Date: 05/28/24 43-year-old female who presented to the office with a 7 mm proximal ureteral stone. She was in the emergency room earlier the today after an abrupt onset of severe left flank pain. She was identified to have at least a 7 mm probably larger proximal ureteral stone at the UPJ. She was given pain medicine. She is was sent home. She comes the office this afternoon. She is still having some mild discomfort. She has blood in the urine without infection. This is her first stone. The CT scan is reviewed and confirms the above-mentioned findings. I discussed with the patient multiple treatment options including spontaneous passage shockwave lithotripsy open surgery percutaneous nephrostolithotomy ureteroscopy. The patient would like the stone removed. She comes for left ureteroscopy and laser lithotripsy. The risk of stent has been discussed. - Constitutional Constitutional: Denies chills, Denies fever - EENT Eyes: denies blurred vision, denies pain Ears, nose, mouth and throat: Denies headache, Denies sore throat - Cardiovascular Cardiovascular: Denies chest pain, Denies shortness of breath - Respiratory Respiratory: Denies cough, Denies 7 - Gastrointestinal Gastrointestinal: Denies abdominal pain, Denies diarrhea, Denies nausea, Denies vomiting - Genitourinary (Female) Genitourinary: Denies dysuria, Denies hematuria - Genitourinary (Male) Genitourinary: Denies dysuria, Denies hematuria - Musculoskeletal Musculoskeletal: Denies myalgias - Integumentary Integumentary: Denies pruritus, Denies rash - Neurological Neurological: Denies numbness, Denies weakness - Psychiatric Psychiatric: Denies anxiety, Denies depression - Endocrine Endocrine: Denies fatigue, Denies weight change Past Medical History Past Medical History: Blood Disorder, GERD/Reflux Additional Past Medical History / Comment(s): CELIAC, IBS. MTHFR, phlebitis in right leg History of Any Multi-Drug Resistant Organisms: None Reported Past Surgical History: Hysterectomy, Tubal Ligation, Uterine Ablation Additional Past Surgical History / Comment(s): ESSURE IMPLANTED BUT REMOVED, colonoscopy and upper scope 2022 Past Anesthesia/Blood Transfusion Reactions: No Reported Reaction Smoking Status: Never smoker - Past Family History Mother Family Medical History: Cancer Medications and Allergies Home Medications Medication Instructions Recorded Confirmed Type HYDROcodone/APAP 5-325MG [[place] 5] 1 each PO Q6HR PRN #12 tab 05/28/24 05/28/24 Rx Ondansetron Odt [Zofran Odt] 4 mg PO Q8HR PRN #10 tab 05/28/24 05/28/24 Rx Allergies Allergy/AdvReac Type Severity Reaction Status Date / Time gluten Allergy CELIAC Verified 05/28/24 14:43 DISEASE adhesive AdvReac Rash/Hives Verified 05/28/24 14:43 Surgical - Exam - General well developed, well nourished, moderate distress - Eyes normal ocular movement, no icteric - ENT no hearing loss, no congestion - Neck no masses, trachea midline - Respiratory normal respiratory effort, clear to auscultation - Abdomen Abdomen: soft, tender, no guarding, no rigid, no rebound - Integumentary no rash, no abnormal pigmentation - Neurologic no disoriented, no combative - Psychiatric oriented to time, oriented to person, oriented to place, speech is normal, memory intact Results - Imaging CT scan - abdomen: report reviewed, image reviewed CT scan - pelvis: report reviewed, image reviewed Assessment and Plan Assessment: Impression: 7 mm proximal left ureteral calculus with colic Recommendations: Left ureteroscopy with laser lithotripsy possible stent placement
[~2024-05-29 12:15] MED LIST changes: +HYDROmorphone 0.5 MG/0.5 ML SYRINGE IVP PRN; -LACTATED RINGERS 1,000 ML IV SCH; +MIDAZOLAM 2 MG/2 ML VIAL IV PRN; -PROPOFOL 10 MG/ML 20 ML VIAL IV ONE; +SCOPOLAMINE 1 MG/72 HR PATCH TRANSDERM ONE
--- NOTE | 2024-05-29 13:18 | XR ---
EXAMINATION TYPE: XR KUB DATE OF EXAM: 05/29/2024 1:05 PM COMPARISON: None. CLINICAL INDICATION: Female, 43 years old with history of calculus, TECHNIQUE: XR KUB view(s) obtained. FINDINGS: There is a normal bowel gas pattern. Psoas margins are normal. No organomegaly is present. There is a 1.1 cm left mid renal stone. Fecal debris is within the colon IMPRESSION: 1. 1.1 cm left renal stone. [facility], , 05/29/2024 1:15 PM
[2024-05-29] MEDS: IV FLUID CONTINUATION 1,000 ML IV ONE (13:32)
[2024-05-29 13:34] VITALS: RESP 16
[2024-05-29] MEDS: LACTATED RINGERS 1,000 ML IV SCH (13:36)
[2024-05-29] MEDS: ONDANSETRON 4 MG/2 ML VIAL IVP ONE (13:37)
[2024-05-29] MEDS: DEXAMETHASONE SOD PHOSPHATE 4 MG/ML 1 ML VIAL IV ONE (13:37)
[2024-05-29] MEDS ORDERED: fentaNYL (PF) 50 MCG/ML 2 ML AMP ONE (14:05)
[2024-05-29] MEDS ORDERED: LIDOCAINE 1% INJ 10MG/ML (20 ML MDV) ONE (14:05)
[2024-05-29] MEDS ORDERED: PROPOFOL 10 MG/ML 20 ML VIAL IV ONE (14:05)
[2024-05-29] MEDS ORDERED: GLYCOPYRROLATE 0.2 MG/ML 2 ML VIAL ONE (14:05)
[2024-05-29] MEDS ORDERED: KETOROLAC 15 MG/ML 1 ML VIAL ONE (14:05)
[2024-05-29] MEDS: ceFAZolin 2 GM in DEXTROSE 5% IN WATER 50 ML IVPB PRN (14:09)
--- NOTE | 2024-05-29 15:10 | P.OP ---
Date of Procedure: 05/29/24 Preoperative Diagnosis: Left ureteral stone Postoperative Diagnosis: Same Procedure(s) Performed: Cystoscopy, left ureteroscopy with laser lithotripsy basketing Anesthesia: PEREZ Surgeon: Shayne Ocampo Estimated Blood Loss (ml): 0 Pathology: other Condition: stable (Stone) Disposition: PACU Indications for Procedure: The patient is 43. She has a 10 mm proximal left ureteral stone causing pain. She comes for left ureteroscopy and laser lithotripsy Description of Procedure: Patient brought to the operating suite. Given a general anesthetic. Placed in lithotomy position with a sterile prep and drape. Cystoscopy with Foroblique lens identifies a normal urethra. The bladder wall is unremarkable. The ureteral orifices are normal. An 035 wire was passed up through the left ureter into the kidney. Over the wire then passed a 11-13 Japanese reentry sheath. The inner sheath is removed as is the wire. Through the ureteral sheath a flexible ureteroscope was passed up into the left kidney. The stone has been dislodged back into the left renal pelvis. With the 270 m laser probe the stone was broken into tiny fragments the largest of which is basketed. Pullout ureteroscopy does not identify any stone or obstruction. I like not to leave t he ureteral catheter. The bladder is drained the patient is awakened and returned to recovery in good condition. She will be discharged home upon recovery and follow in the office in 1 week
[2024-05-29 15:17] VITALS: TEMP 98.3
[2024-05-29] MEDS: HYDROcodone/APAP 5-325MG 1 EACH TAB PO STA (16:19)
[2024-05-29 16:26] VITALS: BP 138/78; PULSE 75
== END 2024-05-29 16:50 | disposition home or self-care (01) ==
LOC: OR 12:15
PROVIDERS: ATTEND Urology
DX: N20.2 Calculus of kidney with calculus of ureter (principal); K21.9 Gastro-esophageal reflux disease without esophagitis; L23.1 Allergic contact dermatitis due to adhesives; Z90.710 Acquired absence of both cervix and uterus; Z79.899 Other long term (current) drug therapy
CPT/HCPCS: 82365; 74018; 52353; C1769; J1100; J0690; J2405; J2003; J3010; J1885; J2704; J1596

== ENCOUNTER → 2024-06-19 | Outpatient (CLI) | payer MEDICAID, OTHER ==
--- NOTE | 2024-05-29 15:22 | FL ---
Fluoroscopy INDICATION: Pain FINDINGS: Fluoroscopy time: 8 seconds. Total dose area product (DAP) in uGy*m?, mGy*cm? (or similar): 0.9350 Images obtained: 4. Images document the procedure. IMPRESSION: 1. Documentation of fluoroscopy. [facility], , 05/29/2024 3:20 PM
--- NOTE | 2024-06-19 12:58 | USB ---
Reason for Exam: Follow-up at short interval from prior study. Patient History: Menarche at age 12. First Full-Term at age 25. Hormonal Contraceptives for 2 years from age 15 until age 17. Mother had breast cancer, age 50. Risk Values: Lety 5 year model risk: 1.4%. NCI Lifetime model risk: 19.6%. Technique: Method: Targeted. Prior Study Comparison: 03/29/2021 Right Diagnostic Mammogram, [facility]. 10/31/2023 Bilateral MG 3D screening mammo w/cad, [facility]. 11/08/2023 Bilateral MG 3D work up w/cad [facility], [facility]. Findings: The upper section of the breast of the right breast, the lower outer quadrant of the left breast, the axilla of both breasts and the retroareolar of both breasts were scanned. Targeted ultrasound bilaterally. There are a few tiny thin-walled cysts redemonstrated throughout the images bilaterally similar to prior ultrasound. No suspicious axillary adenopathy is seen. No suspicious new solid or cystic masses noted. Overall Assessment: Benign, BI-RAD 2 Management: Screening Mammogram of both breasts in 5 months. Back on annual bilateral breast mammogram schedule. A clinical breast exam by your physician is recommended on an annual basis and results should be correlated with mammographic findings. This exam should not preclude additional follow-up of suspicious palpable abnormalities. Results were given to the patient verbally at the time of exam. [facility], , 06/19/2024 12:54 PM. Electronically signed and approved by: Heri Man M.D.
== END | disposition home or self-care (01) ==
LOC: RADUSWWP 12:24
PROVIDERS: ATTEND Obstetrics & Gynecology
DX: N60.01 Solitary cyst of right breast (principal); Z80.3 Family history of malignant neoplasm of breast; Z92.0 Personal history of contraception